=== PATIENT | female | born 1985 | race Caucasian/White ===

== ENCOUNTER 2017-02-18 23:01 | Observation (INO) | payer OTHER ==
[~2017-02-18] VITALS: Ht 170.2 cm; Wt 63.1 kg
[~2017-02-18 23:01] MED LIST: ALBU8I INH; ASPI81TA82 PO; FLON0.053; RANI150 PO; SUCR1S PO; SYNT75TA PO
[2017-02-18 23:04] VITALS: BP 133/74; PULSE 96; RESP 16; TEMP 98.4; O2SAT 96
[2017-02-18] MEDS ORDERED: ZITHTAB PO (23:16)
[2017-02-18] MEDS ORDERED: ALBU.5I NEB (23:16)
[2017-02-18] MEDS ORDERED: PRED20 PO (23:16)
[2017-02-18] MEDS ORDERED: ASPI81CH37 CHEW (23:16)
[2017-02-18] MEDS ORDERED: VENTAER INH (23:16)
[2017-02-19] VITALS (8 sets, daily range): BP systolic 103–119; BP diastolic 55–72; PULSE 83–92; RESP 17–18; TEMP 96.2–96.9; O2SAT 95–98
[2017-02-19] LABS: AUTOMATED NEUTROPHIL # 20.1 TH/MM3 (1.8-7.7); BASOPHIL # 0.2 TH/MM3 (0-0.2); BASOPHIL % 0.8 % (0.0-2.0); EOSINOPHIL % 0.1 % (0.0-4.0); HEMATOCRIT 40.7 % (35.0-46.0); LYMPH % 4.1 % (9.0-44.0); LYMPHOCYTE # 0.9 TH/MM3 (1.0-4.8); MEAN CELL VOLUME 89.5 FL (80.0-100.0); MEAN CORPUSCULAR HEMOGLOBIN 30.4 PG (27.0-34.0); MONO % 1.6 % (0.0-8.0); NEUT % 93.4 % (16.0-70.0); PLATELET COUNT 804 TH/MM3 (150-450); RED BLOOD COUNT 4.54 MIL/MM3 (4.00-5.30); RED CELL DISTRIBUTION WIDTH 13.9 % (11.6-17.2); WHITE BLOOD COUNT 21.5 TH/MM3 (4.0-11.0)
[2017-02-19 00:03] LABS: HEMO FLAGS AUTO DIFF
--- NOTE | 2017-02-19 00:16 | PD ---
HPI Chief Complaint: Respiratory Symptoms Time Seen by Provider: 23:16 Travel History International Travel<30 days: No Contact w/Intl Traveler<30days: No Traveled to known affect area: No History of Present Illness HPI The patient is a 31 year old female who presents to the [facility] emergency department with a history of cough, congestion that began 2 weeks ago. She reports that initially she also had nausea associated with this. She reports that the symptoms seemed to improve and then began to worsen again. She reports that she saw her primary care physician regarding the symptoms and was treated with a seven-day course of amoxicillin and oral steroids. The patient reports that approximately a year ago she was diagnosed with asthma. She reports that she has been using her nebulizer machine and rescue inhaler. She reports that over the last 2 days the cough seems to be worsening. She reports that the cough is productive of yellow sputum. She reports that on Friday to Friday she had a fever with a MAXIMUM TEMPERATURE of 100-101. She went again to see her primary care physician and was given a prescription for Zithromax, an injection of a steroid and another prescription for prednisone. The patient reports that she started the Zithromax yesterday. She reports that over the last 2 days she's had increased pain in the left side of her chest. She reports that it is worse with coughing. She reports a past medical history of essential thrombocythemia and is concerned about the possibility of a blood clot in her lung. She denies ever having a DVT or PE previously. On review systems otherwise, the patient denies having any neck pain, abdominal pain, recent vomiting or diarrhea, or urinary symptoms. LMP: Currently on her menstrual cycle [facility] Past Medical History Narrative Medical The patient's past medical history is significant for essential thrombocythemia , history of tobacco use, history of asthma, history of hypothyroid disorder. Asthma: Yes Blood Disorders: Yes (essentail thrombocythemia) Anxiety: Yes Diminished Hearing: No Endocrine: Yes (hypoglycemia) Immunizations Current: Yes Thyroid Disease: Yes (Hypo) ?: Not : 2 Para: 1 : 1 Past Surgical History Narrative Surgical The patient's past surgical history is significant for a tonsillectomy. Tonsillectomy: Yes Social History Alcohol Use: Yes (SOCIAL) Tobacco Use: No Substance Use: No Allergies-Medications (Allergen,Severity, Reaction): Coded Allergies: No Known Allergies (Unverified , 02/18/17) Reported Meds & Prescriptions Reported Meds & Active Scripts Active Reported Prednisone 20 Mg Tab 20 Mg PO BID Zithromax Z-Josh (Azithromycin) 250 Mg Dspk 250 Mg PO DIRECTED 500 MG (2 tabs) day 1, then 1 tab days 2-5. Albuterol Neb (Albuterol Sulfate) 2.5 Mg/0.5 Ml Neb 2.5 Mg NEB Q4HR NEB PRN Note: The Albuterol Sulfate Inhalation Solution is concentrated and must be diluted. Read complete instructions carefully before using. Ventolin Hfa 18 GM Inh (Albuterol Sulfate) 90 Mcg/Act Aer 2 Puff INH Q4-6H PRN Aspirin Low Dose (Aspirin) 81 Mg Chew 81 Mg CHEW DAILY Review of Systems Except as stated in HPI: all other systems reviewed are Neg General / Constitutional: No: Fever Eyes: No: Visual changes HENT: Positive: Rhinorrhea, Congestion, No: Headaches Cardiovascular: Positive: Chest Pain or Discomfort, Dyspnea on exertion Respiratory: Positive: Cough, Shortness of Breath, Wheezing, Sneezing Gastrointestinal: Positive: Nausea, No: Diarrhea, Abdominal Pain Genitourinary: No: Urgency, Frequency, Dysuria Musculoskeletal: No: Pain Skin: No Rash Neurologic: No: Weakness Psychiatric: No: Depression Endocrine: No: Polydipsia Hematologic/Lymphatic: No: Easy Bruising Physical Exam Narrative General: The patient is a well-developed well-nourished female in no acute distress. Head and Neck exam: Head is normocephalic atraumatic. Eyes: EOMI, pupils are equal round and reactive to light. Nose: Nose is midline septum with erythematous edematous nasal mucosa and a clear nasal discharge. Mouth: Dentition unremarkable. Moist mucus membranes. Posterior oropharynx is mildly erythematous. No tonsillar hypertrophy. Uvula midline. Airway patent. Neck: No palpable lymphadenopathy. No nuchal rigidity. No thyromegaly. Cardiovascular: Regular rate and rhythm without murmurs, gallops, or rubs. Lungs: The patient has coarse airway breath sounds in the lung bases, no wheezes, or rhonchi. The patient has a frequent dry sounding cough on examination. Abdomen: Soft, without tenderness to palpation in all 4 quadrants of the abdomen. No guarding, rebound, or rigidity. Normal bowel sounds are audible. No tenderness on palpation of McBurney's point. Extremities: No clubbing, cyanosis, or edema. 2+ pulses in all 4 extremities. No calf tenderness on palpation. Negative Homans sign. Back: No spinous process tenderness to palpation. No costovertebral angle tenderness to palpation. Above the CVA area on the left side laterally posterior axillary line the patient reports tenderness on palpation. There is no erythema or ecchymosis. No crepitus or step-off. No flail segment. Neurologic Exam: Grossly nonfocal. Skin Exam: No rash noted. Intact skin that is warm and dry. Data Data Last Documented VS Vital Signs Date Time Temp Pulse Resp B/P (MAP) Pulse Ox O2 Delivery O2 Flow Rate FiO2 02/18/17 23:07 18 96 Room Air 02/18/17 23:04 98.4 96 133/74 (93) Orders Orders Electrocardiogram (02/18/17 23:33) Complete Blood Count With Diff (02/18/17 23:33) Urinalysis - C+S If Indicated (02/18/17 23:33) Iv Access Insert/Monitor (02/18/17 23:33) Ecg Monitoring (02/18/17:33) Oximetry (02/18/17 23:33) Basic Metabolic Panel (Bmp) (02/18/17 23:33) Creatine Kinase (Cpk) (02/18/17 23:33) Ckmb (Isoenzyme) Profile (02/18/17 23:33) Troponin I (02/18/17:33) B-Type Natriuretic Peptide (02/18/17 23:33) Ct Pulmonary Angiogram (02/18/17 23:33) Iohexol 350 Inj (Omnipaque 350 Inj) (02/19/17 00:40) Ceftriaxone Inj (Rocephin Inj) (02/19/17 01:30) Lactic Acid Sepsis Protocol (02/19/17 02:26) Blood Culture (02/19/17 02:26) Sodium Chlor 0.9% 1000 Ml Inj (Ns 1000 M (02/19/17 02:45) Admit Order (Ed Use Only) (02/19/17 02:39) Albuterol-Ipratropium Neb (Duoneb Neb) (02/19/17 02:45) Methylprednisolone So Succ Inj (Solumedr (02/19/17 02:45) Site Acquisition Manager / Telemetry CHRIS.Q8H (02/19/17 02:39) Vital Signs (Adult) Q4H (02/19/17 02:39) Diet Heart Healthy (02/19/17 Breakfast) Activity Bed Rest (02/19/17 02:39) Labs Laboratory Tests Test 02/18/17 23:51 02/19/17 01:40 White Blood Count 21.5 TH/MM3 Red Blood Count 4.54 MIL/MM3 Hemoglobin 13.8 GM/DL Hematocrit 40.7 % Mean Corpuscular Volume 89.5 FL Mean Corpuscular Hemoglobin 30.4 PG Mean Corpuscular Hemoglobin Concent 34.0 % Red Cell Distribution Width 13.9 % Platelet Count 804 TH/MM3 Mean Platelet Volume 6.7 FL Neutrophils (%) (Auto) 93.4 % Lymphocytes (%) (Auto) 4.1 % Monocytes (%) (Auto) 1.6 % Eosinophils (%) (Auto) 0.1 % Basophils (%) (Auto) 0.8 % Neutrophils # (Auto) 20.1 TH/MM3 Lymphocytes # (Auto) 0.9 TH/MM3 Monocytes # (Auto) 0.3 TH/MM3 Eosinophils # (Auto) 0.0 TH/MM3 Basophils # (Auto) 0.2 TH/MM3 CBC Comment AUTO DIFF Differential Total Cells Counted 100 Neutrophils % (Manual) 83 % Band Neutrophils % 2 % Lymphocytes % 10 % Monocytes % 3 % Neutrophils # (Manual) 18.7 TH/MM3 Myelocytes 2 % Differential Comment FINAL DIFF MANUAL Atypical Lymphocytes % Platelet Estimate HIGH Platelet Morphology Comment NORMAL Red Cell Morphology Comment NORMAL Blood Urea Nitrogen 9 MG/DL Creatinine 0.57 MG/DL Random Glucose 116 MG/DL Calcium Level 9.0 MG/DL Sodium Level 139 MEQ/L Potassium Level 4.0 MEQ/L Chloride Level 106 MEQ/L Carbon Dioxide Level 25.0 MEQ/L Anion Gap 8 MEQ/L Estimat Glomerular Filtration Rate 124 ML/MIN Total Creatine Kinase 41 U/L Troponin I LESS THAN 0.02 NG/ML B-Type Natriuretic Peptide 26 PG/ML Urine Color LIGHT-YELLOW Urine Turbidity CLEAR Urine pH 6.0 Urine Specific [place] GREATER THAN 1.050 Urine Protein TRACE mg/dL Urine Glucose (UA) NEG mg/dL Urine Ketones NEG mg/dL Urine Occult Blood LARGE Urine Nitrite NEG Urine Bilirubin NEG Urine Urobilinogen LESS THAN 2.0 MG/DL Urine Leukocyte Esterase NEG Urine RBC 1 /hpf Urine WBC 2 /hpf Urine Squamous Epithelial Cells 12 /hpf Microscopic Urinalysis Comment CULT NOT INDICATED MDM Medical Decision Making Medical Screen Exam Complete: Yes Emergency Medical Condition: Yes Medical Record Reviewed: Yes Interpretation(s) Last Impressions CT Angiography 02/18/17 2333 Signed Impressions: Service Date/Time: Sunday, February 19, 2017 00:38 - CONCLUSION: No evidence of pulmonary embolism. Right lower lobe infiltrate. Chase Barnard MD Differential Diagnosis Pneumonia, versus pulmonary embolism, versus pleurisy, versus costochondritis, versus musculoskeletal strain Narrative Course During the course of the patients emergency department visit, the patients history, examination, and differential diagnosis were reviewed with the patient. The patient had IV access obtained and blood work sent for analysis. The patient was placed on a grease renderer with oximetry and blood pressure monitoring. An ECG was done on arrival. The patient's ECG reveals a sinus rhythm heart rate of 70, no acute ST segment elevation or depression, T waves are inverted in V1. QRS duration is 70 ms, QTC 375 ms. The patients laboratory studies were reviewed and remarkable for a white count of 21.5, hemoglobin 13.8, platelets 804 with 83 neutrophils, bands 2. Basic metabolic profile is remarkable for glucose of 116, CPK 41, troponin I less than 0.02, BNP 26, lactic acid 0.9, urinalysis shows large occult blood, 1 rbc, concentrated urine. The patient was started on normal saline 1 L IV fluid bolus. The patient was given 60 mg of Solu-Medrol IV and she reports being on steroids and received an injection of steroids yesterday intramuscularly. The patient was given Rocephin 1 g IV as she has recently been started on Zithromax by mouth yesterday. Radiology studies were reviewed and remarkable for a CTA reveals no evidence of pulmonary embolism, however the patient is noted to have a right lower lobe infiltrate consistent with pneumonia. The patients results were discussed with the patient, including the plan of care. I explained that further testing and/ or monitoring is indicated based on the patients history, examination, and/ or laboratory findings. Therefore, I recommended admission for additional evaluation. The patient expressed understanding and was agreeable with this plan. The patient was admitted to the hospital in stable condition and [facility] Sepsis Criteria SIRS Criteria (2 or more): Heart rate over 90, WBC > 32836, < 4000 or > 10% bands Sepsis Criteria (SIRS+source): Infect source susp/known Criteria Outcome: Meets SIRS criteria, Meets sepsis criteria Physician Communication Physician Communication The patient's case was discussed with Dr. Espinoza who did agree to admit the patient for further evaluation and treatment at this time. Diagnosis Primary Impression: Pneumonia Qualified Codes: J18.1 - Lobar pneumonia, unspecified organism Additional Impression: Asthma exacerbation Qualified Codes: J45.41 - Moderate persistent asthma with (acute) exacerbation Admitting Information Admitting Physician Requests: it Celestina Stewart MD Feb 19, 2017 00:16
[2017-02-19 00:26] LABS: ANION GAP 8 MEQ/L (5-15); BLOOD UREA NITROGEN 9 MG/DL (7-18); CHLORIDE 106 MEQ/L (98-107); GLOMERULAR FILTRATION RATE 124 ML/MIN (>89); SODIUM (NA) 139 MEQ/L (136-145)
[2017-02-19 00:30] LABS: CREATINE KINASE 41 U/L (26-192)
[2017-02-19] MEDS ORDERED: IOHEXOL 350 MG/ML 10 ML VIAL (for RAD DIAG) IVCONTRAST ONE (00:40)
[2017-02-19 00:49] LABS: BANDS 2 % (0-6); MYELOCYTES 2 % (0-0); NEUTROPHIL # MANUAL DIFF 18.7 TH/MM3 (1.8-7.7); POLYS (SEG NEUTROPHILS) 83 % (16-70); WBC DIFF SAMPLE 100
[2017-02-19 00:50] LABS: PLATELET ESTIMATE SMEAR HIGH (NORMAL); PLATELET MORPHOLOGY NORMAL (NORMAL); SCAN/DIFF FINAL DIFF MANUAL
--- NOTE | 2017-02-19 00:57 | RADRPT ---
EXAM DATE/TIME: 02/19/2017 00:38 [place] COMPARISON: No previous studies available for comparison. INDICATIONS : Shortness of breath with cough x2 weeks. IV CONTRAST: 69 cc Omnipaque 350 (iohexol) IV RADIATION DOSE: 22.93 CTDIvol (mGy) MEDICAL HISTORY : None SURGICAL HISTORY : Tonsillectomy. ENCOUNTER: Initial ACUITY: 2 weeks PAIN SCALE: 0/10 LOCATION: Bilateral chest TECHNIQUE: Volumetric scanning of the chest was performed using a pulmonary embolism protocol MIP images were re constructed. Using automated exposure control and adjustment of the mA and/or kV according to patien t size, radiation dose was kept as low as reasonably achievable to obtain optimal diagnostic quality images. DICOM format image data is available electronically for review and comparison. Follow-up recommendations for detected pulmonary nodules are based at a minimum on nodule size and pa tient risk factors according to Fleischner Society Guidelines. FINDINGS: PULMONARY ARTERIES: No filling defects are seen in the pulmonary arteries through the segmental level. LUNGS: A there is interstitial and alveolar infiltrate in the right lower lobe posteriorly. PLEURAE: There is no pleural thickening or pleural effusion. MEDIASTINUM: Minimal prominence of right hilar vanna tissue, presumably reactive. MUSCULOSKELETAL: Within normal limits for patient age. MISCELLANEOUS: The visualized upper abdominal organs demonstrate no acute abnormality. CONCLUSION: No evidence of pulmonary embolism. Right lower lobe infiltrate. Chase Barnard MD on February 19, 2017 at 0:53 Board Certified Radiologist. This report was verified electronically.
[2017-02-19] MEDS ORDERED: cefTRIAXone INJ 1,000 MG in SODIUM CHLORIDE 0.9% INJ 100 ML IV ONE (01:30)
[2017-02-19 01:51] LABS: BLOOD, URINE LARGE (NEG); COMMENT (UR) CULT NOT INDICATED; CULTURE IF INDICATED CULT NOT INDICATED; GLUCOSE,URINE NEG (NEG); KETONE, URINE NEG (NEG); NITRITE,URINE NEG (NEG); SQUAMOUS EPITHELIAL CELL URINE 12 /hpf (0-5); URINE COLOR LIGHT-YELLOW (YELLW/STRAW)
[2017-02-19] MEDS ORDERED: SODIUM CHLOR 0.9% 1000 ML INJ 1,000 ML IV ONE (02:45)
[2017-02-19] MEDS ORDERED: methylPREDNISolone SOD SUCC 125 MG/2 ML VIAL IV PUSH ONE (02:45)
[2017-02-19] MEDS ORDERED: RESP: ALBUTEROL 2.5 MG/IPRATROPIUM 0.5 MG NEB (SCH) NEB ONE (02:45)
[2017-02-19] MEDS ORDERED: ACETAMINOPHEN 325 MG TAB PO PRN (09:45)
[2017-02-19] MEDS ORDERED: RESP: ALBUTEROL 2.5 MG/IPRATROPIUM 0.5 MG NEB (PRN) NEB (09:45)
[2017-02-19] MEDS ORDERED: MAGNESIUM HYDROXIDE SUSP 30 ML CUP PO PRN (09:45)
[2017-02-19] MEDS ORDERED: ONDANSETRON HCL 4 MG/2 ML VIAL IVP PRN (09:45)
[2017-02-19] MEDS ORDERED: NALOXONE HCL 0.4 MG/ML AMP IV PUSH PRN (09:45)
[2017-02-19] MEDS ORDERED: SODIUM CHLORIDE 0.9% FLUSH 10 ML FLUSH IV FLUSH PRN (09:45)
--- NOTE | 2017-02-19 09:56 | HHI.HP ---
HPI Service [facility] Hospitalists Primary Care Physician Cecy Mckeon M.D. Admission Diagnosis Right lower lobe pneumonia, asthma exacerbation Chief Complaint: persistent congestion and cough x 2 weeks. Travel History International Travel<30 Days: No Contact w/Intl Traveler <30 Da: No Traveled to Known Affected Are: No History of Present Illness The patient is a 31 year old female who presents to the [facility] emergency department with a history of cough, congestion that began 2 weeks ago. She reports that initially she initially thought she had the flu and the the nasal congestion and cough was associated with nausea, vomiting and diarrhea. She reports that she saw her primary care physician regarding the symptoms and was treated with a seven-day course of amoxicillin and oral steroids. The patient reports that approximately a year ago she was diagnosed with asthma. She reports that she has been using her nebulizer machine and rescue inhaler. She reports that over the last 2 days the cough seems to be worsening. Patient has productive cough of yellow sputum. She reports that on Friday to Friday she had a fever with a MAXIMUM TEMPERATURE of 100-101. She went again to see her primary care physician and was given a prescription for Zithromax, an injection of a steroid and another prescription for prednisone. The patient reports that she has taken 3 days of Zithromax at home. She reports that over the last 2 days she's had increased pain in the left side of her chest. She reports that it is worse with coughing. She reports a past medical history of essential thrombocythemia and is concerned about the possibility of a blood clot in her lung. She denies ever having a DVT or PE previously. Review of Systems Constitutional: COMPLAINS OF: Fatigue, Fever, DENIES: Chills Respiratory: COMPLAINS OF: Cough, Sputum production, Shortness of breath Cardiovascular: COMPLAINS OF: Dyspnea on Exertion, DENIES: Chest pain, Palpitations, Lower Extremity Edema Gastrointestinal: DENIES: Abdominal pain, Constipation, Diarrhea Neurologic: DENIES: Abnormal gait, Headache, Localized weakness Psychiatric: DENIES: Anxiety, Confusion, Depression Past Family Social History Past Medical History essential thrombocythemia, history of tobacco use, history of asthma, history of hypothyroid disorder. Past Surgical History tonsillectomy and adenoidectomy Reported Medications Prednisone 20 Mg Tab 20 Mg PO BID Zithromax Z-Josh (Azithromycin) 250 Mg Dspk 250 Mg PO DIRECTED 500 MG (2 tabs) day 1, then 1 tab days 2-5. Albuterol Neb (Albuterol Sulfate) 2.5 Mg/0.5 Ml Neb 2.5 Mg NEB Q4HR NEB PRN Note: The Albuterol Sulfate Inhalation Solution is concentrated and must be diluted. Read complete instructions carefully before using. Ventolin Hfa 18 GM Inh (Albuterol Sulfate) 90 Mcg/Act Aer 2 Puff INH Q4-6H PRN Aspirin Low Dose (Aspirin) 81 Mg Chew 81 Mg CHEW DAILY Allergies: Coded Allergies: No Known Allergies (Unverified , 02/18/17) Active Ordered Medications Current Medications Medications (Trade) Dose Ordered Sig/Walter Route Start Time Stop Time Status Last Admin (NS Flush) 2 ml UNSCH PRN IV FLUSH 02/19/17 09:45 UNV (NS Flush) 2 ml BID IV FLUSH 02/19/17 21:00 UNV (Tylenol) 650 mg Q4H PRN PO 02/19/17 09:45 UNV (Zofran Inj) 4 mg Q6H PRN IVP 02/19/17 09:45 UNV (Narcan Inj) 0.4 mg UNSCH PRN IV PUSH 02/19/17 09:45 UNV (Chrissy-Colace) 1 tab BID PO 02/19/17 21:00 UNV (Milk Of Magnesia Liq) 30 ml Q12H PRN PO 02/19/17 09:45 UNV (Duoneb Neb) 1 ampule Q6HR WHILE AWAKE NEB NEB 02/19/17 14:00 UNV (Duoneb Neb) 1 ampule Q4HR NEB PRN NEB 02/19/17 09:45 UNV Social History Social ETOH use Current tobacco use denies illicit drug use Physical Exam Vital Signs Vital Signs Date Time Temp Pulse Resp B/P (MAP) Pulse Ox O2 Delivery O2 Flow Rate FiO2 02/19/17 04:00 96.9 89 17 119/72 (88) 96 02/19/17 02:55 97 02/18/17 23:07 18 96 Room Air 02/18/17 23:04 98.4 96 16 133/74 (93) 96 Physical Exam GENERAL: This is a well-nourished, well-developed patient EYES: Extraocular motions intact. No scleral icterus. No injection or drainage. ENT: Nose without bleeding, purulent drainage or septal hematoma. Throat without erythema, tonsillar hypertrophy or exudate. Uvula midline. Airway patent. NECK: Trachea midline. No JVD or lymphadenopathy. Supple, nontender, no meningeal signs. CARDIOVASCULAR: Regular rate and rhythm without murmurs, gallops, or rubs. RESPIRATORY: bilateral coarse rhonchi through out. GASTROINTESTINAL: Abdomen soft, non-tender, nondistended. No hepato-splenomegaly , or palpable masses. No guarding. MUSCULOSKELETAL: Extremities without clubbing, cyanosis, or edema. No joint tenderness, effusion, or edema noted. No calf tenderness. Negative Homans sign bilaterally. NEUROLOGICAL: Awake and alert. No focal deficits appreciated. Motor and sensory grossly within normal limits. Five out of 5 muscle strength in all muscle groups. Normal speech. Laboratory Laboratory Tests Test 02/18/17 23:51 02/19/17 01:40 02/19/17 03:00 White Blood Count 21.5 Red Blood Count 4.54 Hemoglobin 13.8 Hematocrit 40.7 Mean Corpuscular Volume 89.5 Mean Corpuscular Hemoglobin 30.4 Mean Corpuscular Hemoglobin Concent 34.0 Red Cell Distribution Width 13.9 Platelet Count 804 Mean Platelet Volume 6.7 Neutrophils (%) (Auto) 93.4 Lymphocytes (%) (Auto) 4.1 Monocytes (%) (Auto) 1.6 Eosinophils (%) (Auto) 0.1 Basophils (%) (Auto) 0.8 Neutrophils # (Auto) 20.1 Lymphocytes # (Auto) 0.9 Monocytes # (Auto) 0.3 Eosinophils # (Auto) 0.0 Basophils # (Auto) 0.2 CBC Comment AUTO DIFF Differential Total Cells Counted 100 Neutrophils % (Manual) 83 Band Neutrophils % 2 Lymphocytes % 10 Monocytes % 3 Neutrophils # (Manual) 18.7 Myelocytes 2 Differential Comment FINAL DIFF MANUAL Atypical Lymphocytes Platelet Estimate HIGH Platelet Morphology Comment NORMAL Red Cell Morphology Comment NORMAL Blood Urea Nitrogen 9 Creatinine 0.57 Random Glucose 116 Calcium Level 9.0 Sodium Level 139 Potassium Level 4.0 Chloride Level 106 Carbon Dioxide Level 25.0 Anion Gap 8 Estimat Glomerular Filtration Rate 124 Total Creatine Kinase 41 Troponin I LESS THAN 0.02 B-Type Natriuretic Peptide 26 Urine Color LIGHT-YELLOW Urine Turbidity CLEAR Urine pH 6.0 Urine Specific [place] GREATER THAN 1.050 Urine Protein TRACE Urine Glucose (UA) NEG Urine Ketones NEG Urine Occult Blood LARGE Urine Nitrite NEG Urine Bilirubin NEG Urine Urobilinogen LESS THAN 2.0 Urine Leukocyte Esterase NEG Urine RBC 1 Urine WBC 2 Urine Squamous Epithelial Cells 12 Microscopic Urinalysis Comment CULT NOT INDICATED Lactic Acid Level 0.9 Date/Time Source Procedure Growth Status 02/19/17 03:00 Blood Peripheral Aerobic Blood Culture Pending Received 02/19/17 03:00 Blood Peripheral Anaerobic Blood Culture Pending Received Result Diagram: 02/18/17 2351 02/18/[address] Angiography 02/18/173 Signed Impressions: Service Date/Time: Sunday, February 19, 2017 00:38 - CONCLUSION: No evidence of pulmonary embolism. Right lower lobe infiltrate. MD Vanessa Mcneil VTE Risk Assessment Vanessa VTE Risk Assessment: No/Low Risk (score <= 1) Davidrini Risk Assessment Model Point Value = 1 Point Value = 2 Point Value = 3 Point Value = 5 Age 41-60 Minor surgery BMI > 25 kg/m2 Swollen legs Varicose veins or History of unexplained or recurrent spontaneous Oral contraceptives or hormone replacement Sepsis (< 1 month) Serious lung disease, including pneumonia (< 1 month) Abnormal pulmonary function Acute myocardial infarction Congestive heart failure (< 1 month) History of inflammatory bowel disease Medical patient at bed rest Age 61-74 Arthroscopic surgery Major open surgery (> 45 min) Laparoscopic surgery (> 45 min) Malignancy Confined to bed (> 72 hours) Immobilizing plaster cast Central venous access Age >= 75 History of VTE Family history of VTE Factor V Leiden Prothrombin [id number] Lupus anticoagulant Anticardiolipin antibodies Elevated serum homocysteine Heparin-induced thrombocytopenia Other congenital or acquired thrombophilia Stroke (< 1 month) Elective arthroplasty Hip, pelvis, or leg fracture Acute spinal cord injury (< 1 month) Prophylaxis Regimen Total Risk Factor Score Risk Level Prophylaxis Regimen 0-1 Low Early ambulation 2 Moderate Order ONE of the following: *Sequential Compression Device (SCD) *Heparin 5000 units SQ BID 3-4 Higher Order ONE of the following medications: *Heparin 5000 units SQ TID *Enoxaparin/Lovenox 40 mg SQ daily (WT < 150 kg, CrCl > 30 mL/min) *Enoxaparin/Lovenox 30 mg SQ daily (WT < 150 kg, CrCl > 10-29 mL/min) *Enoxaparin/Lovenox 30 mg SQ BID (WT < 150 kg, CrCl > 30 mL/min) AND/OR *Sequential Compression Device (SCD) 5 or more Highest Order ONE of the following medications: *Heparin 5000 units SQ TID (Preferred with Epidurals) *Enoxaparin/Lovenox 40 mg SQ daily (WT < 150 kg, CrCl > 30 mL/min) *Enoxaparin/Lovenox 30 mg SQ daily (WT < 150 kg, CrCl > 10-29 mL/min) *Enoxaparin/Lovenox 30 mg SQ BID (WT < 150 kg, CrCl > 30 mL/min) AND *Sequential Compression Device (SCD) Assessment and Plan Problem List: (1) Pneumonia ICD Codes: J18.9 - Pneumonia, unspecified organism Status: Acute Plan: Patient with 2 weeks of nasal congestion and productive cough. Patient has failed outpatient therapy including amoxicillin, azithromycin and by mouth steroids. Patient's lungs have bilateral coarse rhonchi through out. There lung sounds are concerning, patient at risks for decompensation and readmission if discharged today. CT angiogram reviewed no evidence of pulmonary embolism. Right lower lobe infiltrate IV Rocephin Q24 hours Duonebs Q6H while awake and as needed Solu Medrol 60 mg IV Q12H supplemental oxygen to maintain saturation >92% continue to monitor for improvement Recheck Labs and CXR in AM plan to DC in 2-3days once patient's status improves DVT prophylaxis with SCDs (2) Asthma exacerbation ICD Codes: J45.901 - Unspecified asthma with (acute) exacerbation Status: Acute Plan: see above Assessment and Plan Patient examined. Assessment and plan formulated with Jenna Rogers PA-C. I agree with the above. Problem Qualifiers (1) Asthma exacerbation: Qualified Codes: J45.901 - Unspecified asthma with (acute) exacerbation Jenna Rogers Feb 19, 2017 09:56 Leoncio Morris DO Feb 23, 2017 00:20
--- NOTE | 2017-02-19 15:06 | EKG ---
Date Performed: 02/19/2017 Time Performed: 00:04:06 PTAGE: 31 years EKG: Sinus rhythm NORMAL ECG NO PREVIOUS TRACING DOCTOR: Bryon Olmedo Interpretating Date/Time 02/19/2017 15:05:12
[2017-02-19] MEDS: RESP: ALBUTEROL 2.5 MG/IPRATROPIUM 0.5 MG NEB (SCH) NEB ×2 (15:36→20:45)
[2017-02-19] MEDS: methylPREDNISolone SOD SUCC 125 MG/2 ML VIAL IV PUSH SCH (20:06)
[2017-02-19] MEDS: SODIUM CHLORIDE 0.9% FLUSH 10 ML FLUSH IV FLUSH SCH (20:06)
[2017-02-19] MEDS: DOCUSATE SODIUM 50 MG/SENNA 8.6 MG TAB PO SCH (20:06)
[2017-02-19] MEDS: cefTRIAXone INJ 1,000 MG in SODIUM CHLORIDE 0.9% INJ 100 ML IV SCH (22:38)
[2017-02-20] VITALS (8 sets, daily range): BP systolic 95–119; BP diastolic 51–72; PULSE 62–96; RESP 17–20; TEMP 95.9–97.1; O2SAT 94–98
[2017-02-20] MEDS: RESP: ALBUTEROL 2.5 MG/IPRATROPIUM 0.5 MG NEB (SCH) NEB ×3 (07:39→19:18)
[2017-02-20 08:17] LABS: AUTOMATED NEUTROPHIL # 21.7 TH/MM3 (1.8-7.7); BASOPHIL # 0.1 TH/MM3 (0-0.2); BASOPHIL % 0.3 % (0.0-2.0); HEMATOCRIT 38.8 % (35.0-46.0); HEMO FLAGS DIFF FINAL; LYMPH % 8.2 % (9.0-44.0); MEAN CELL VOLUME 90.2 FL (80.0-100.0); MEAN CORPUSCULAR HEMOGLOBIN 29.9 PG (27.0-34.0); MEAN CORPUSCULAR HGB CONC 33.2 % (32.0-36.0); MONO % 4.7 % (0.0-8.0); NEUT % 86.8 % (16.0-70.0); PLATELET COUNT 784 TH/MM3 (150-450); RED CELL DISTRIBUTION WIDTH 14.3 % (11.6-17.2); WHITE BLOOD COUNT 25.1 TH/MM3 (4.0-11.0)
[2017-02-20] MEDS ORDERED: ASPIRIN 325 MG TAB PO SCH (09:00)
[2017-02-20 09:15] LABS: POTASSIUM 3.9 MEQ/L (3.5-5.1)
[2017-02-20] MEDS: SODIUM CHLORIDE 0.9% FLUSH 10 ML FLUSH IV FLUSH SCH ×2 (09:20→22:30)
[2017-02-20] MEDS: methylPREDNISolone SOD SUCC 125 MG/2 ML VIAL IV PUSH SCH ×2 (09:21→22:27)
[2017-02-20] MEDS: DOCUSATE SODIUM 50 MG/SENNA 8.6 MG TAB PO SCH ×2 (09:21→22:27)
--- NOTE | 2017-02-20 10:35 | RADRPT ---
EXAM DATE/TIME: 02/20/2017 10:03 [place] COMPARISON: CHEST PA & LAT, October 05, 2015, 19:38. INDICATIONS : Cough; pneumonia. MEDICAL HISTORY : None. SURGICAL HISTORY : None. ENCOUNTER: Subsequent ACUITY: 2 weeks PAIN SCORE: 4/10 LOCATION: Bilateral chest FINDINGS: PA and lateral views of the chest demonstrate the lungs to be symmetrically aerated without evidence of mass, infiltrate or effusion. The cardiomediastinal contours are unremarkable. Osseous structure s are intact. There is subsegmental atelectasis in the right base. CONCLUSION: 1. Subsegmental atelectasis right base. Michi Erazo MD on February 20, 2017 at 10:34 Board Certified Radiologist. This report was verified electronically.
--- NOTE | 2017-02-20 15:52 | HHI.PR ---
Subjective Remarks Less SOB today. Less wheezing today. No fever. Less coughing. Some pleuritic chest pain with coughing. Objective Vitals Vital Signs Date Time Temp Pulse Resp B/P (MAP) Pulse Ox O2 Delivery O2 Flow Rate FiO2 02/20/17 12:00 95.9 74 18 119/68 (85) 94 02/20/17 08:00 82 02/20/17 07:45 96.1 62 18 95/51 (66) 95 02/20/17 04:37 96.7 69 17 104/59 (74) 94 02/20/17 00:10 96.3 78 17 99/63 (75) 94 02/19/17 20:47 98 02/19/17 20:10 96.8 92 17 104/62 (76) 97 02/19/17 16:00 96.3 88 18 111/67 (82) 96 02/20/17 02/20/17 02/21/17 15:00 23:00 07:00 Intake Total 600 ml Balance 600 ml Intake Oral 600 ml # Voids 3 # Bowel Movements 0 Result Diagram: 02/20/17 0655 02/20/17 [address] Angiography 02/18/17 4742 Signed Impressions: Service Date/Time: Sunday, February 19, 2017 00:38 - CONCLUSION: No evidence of pulmonary embolism. Right lower lobe infiltrate. Chase Barnard MD Objective Remarks GENERAL: This is a well-nourished, well-developed patient, in no apparent distress. CARDIOVASCULAR: Regular rate and rhythm without murmurs, gallops, or rubs. RESPIRATORY: airway movement much improved, still some b/l end expiratory wheezing GASTROINTESTINAL: Abdomen soft, non-tender, nondistended. Normal active bowel sounds MUSCULOSKELETAL: Extremities without clubbing, cyanosis, or edema. NEURO: Alert & Oriented x4 to person, place, time, situation. Moves all ext x4 A/P Problem List: (1) Pneumonia ICD Codes: J18.9 - Pneumonia, unspecified organism Status: Acute Plan: Patient with 2 weeks of nasal congestion and productive cough. Patient has failed outpatient therapy including amoxicillin, azithromycin and by mouth steroids. Patient's lungs have bilateral coarse rhonchi through out. There lung sounds are concerning, patient at risks for decompensation and readmission if discharged today. CT angiogram reviewed no evidence of pulmonary embolism. Right lower lobe infiltrate IV Rocephin Q24 hours Duonebs Q6H while awake and as needed - Solu Medrol 60 mg IV Q12H, will change to PO for 02/21 - supplemental O2 prn - anticipate d/c to home in AM - Case Mgmt to arrange for home nebulizer - DVT prophylaxis - supportive care (2) Asthma exacerbation ICD Codes: J45.901 - Unspecified asthma with (acute) exacerbation Status: Acute Plan: see above Problem Qualifiers (1) Asthma exacerbation: Qualified Codes: J45.901 - Unspecified asthma with (acute) exacerbation Leoncio Morris DO Feb 20, 2017 15:52
[2017-02-20] MEDS ORDERED: NEBULIZER1 MI1 (15:54)
[2017-02-20] MEDS: cefTRIAXone INJ 1,000 MG in SODIUM CHLORIDE 0.9% INJ 100 ML IV SCH (22:29)
[2017-02-20] MEDS ORDERED: KETOROLAC TROMETHAMINE 60 MG/2 ML (IM) VIAL IM ONE (23:30)
[2017-02-21 00:40] VITALS: BP 114/65; PULSE 86; RESP 16; TEMP 97.1; O2SAT 96
[2017-02-21 04:40] VITALS: BP 112/72; PULSE 72; RESP 16; TEMP 96.8; O2SAT 95
[2017-02-21 07:39] VITALS: BP 96/53; PULSE 61; RESP 18; TEMP 96.5; O2SAT 95
[2017-02-21] MEDS: predniSONE 10 MG TAB PO SCH ×3 (08:00→09:00)
[2017-02-21 08:02] VITALS: O2SAT 98
[2017-02-21] MEDS: RESP: ALBUTEROL 2.5 MG/IPRATROPIUM 0.5 MG NEB (SCH) NEB ×2 (08:02→12:20)
[2017-02-21] MEDS: SODIUM CHLORIDE 0.9% FLUSH 10 ML FLUSH IV FLUSH SCH (08:39)
[2017-02-21] MEDS: DOCUSATE SODIUM 50 MG/SENNA 8.6 MG TAB PO SCH (08:39)
[2017-02-21] MEDS ORDERED: ASPIRIN 81 MG CHEW TAB PO SCH (09:00)
[2017-02-21 09:27] VITALS: PULSE 61
[2017-02-21 11:30] VITALS: BP 128/74; PULSE 93; RESP 18; TEMP 96.5; O2SAT 94
[2017-02-21] MEDS ORDERED: ALBU.5I NEB (13:49)
[2017-02-21] MEDS ORDERED: IPRA0.02 NEB (13:49)
[2017-02-21] MEDS ORDERED: LEVA500T20 PO (13:49)
[2017-02-21] MEDS ORDERED: KETO10 PO (13:49)
[2017-02-21] MEDS ORDERED: PRED10 PO (13:49)
--- NOTE | 2017-02-21 13:52 | HHI.DCPOC ---
Discharge Care Plan Diagnosis: (1) Pneumonia (2) Asthma exacerbation (3) Leukocytosis Goals to Promote Your Health * To prevent worsening of your condition and complications * To maintain your health at the optimal level Directions to Meet Your Goals Take your medications as prescribed Follow your dietary instruction Follow activity as directed Keep your appointments as scheduled Take your immunizations and boosters as scheduled If your symptoms worsen call your PCP, if no PCP go to Urgent Care Center or Emergency Room Smoking is Dangerous to Your Health. Avoid second hand smoke Call the 24-hour hour crisis hotline for domestic abuse at Jenna Rogers Feb 21, 2017 13:52 Leoncio Morris DO Feb 23, 2017 00:21
--- NOTE | 2017-02-21 13:55 | HHI.DS ---
Discharge Summary Admission Date Feb 19, 2017 at 02:43 Discharge Date: Feb 21, 2017 Admitting Diagnosis Right lower lobe pneumonia, asthma exacerbation (1) Pneumonia ICD Codes: J18.9 - Pneumonia, unspecified organism Status: Acute (2) Asthma exacerbation ICD Codes: J45.901 - Unspecified asthma with (acute) exacerbation Status: Acute Consultants none Procedures none Brief History The patient is a 31 year old female who presents to the [facility] emergency department with a history of cough, congestion that began 2 weeks ago. She reports that initially she initially thought she had the flu and the the nasal congestion and cough was associated with nausea, vomiting and diarrhea. She reports that she saw her primary care physician regarding the symptoms and was treated with a seven-day course of amoxicillin and oral steroids. The patient reports that approximately a year ago she was diagnosed with asthma. She reports that she has been using her nebulizer machine and rescue inhaler. She reports that over the last 2 days the cough seems to be worsening. Patient has productive cough of yellow sputum. She reports that on Friday to Friday she had a fever with a MAXIMUM TEMPERATURE of 100-101. She went again to see her primary care physician and was given a prescription for Zithromax, an injection of a steroid and another prescription for prednisone. The patient reports that she has taken 3 days of Zithromax at home. She reports that over the last 2 days she's had increased pain in the left side of her chest. She reports that it is worse with coughing. She reports a past medical history of essential thrombocythemia and is concerned about the possibility of a blood clot in her lung. She denies ever having a DVT or PE previously. CBC/BMP: 02/20/17 0655 02/20/17 0655 Significant Findings Laboratory Tests Test 02/18/17 23:51 02/19/17 01:40 02/19/17 03:00 02/20/17 06:55 White Blood Count 21.5 TH/MM3 (4.0-11.0) 25.1 TH/MM3 (4.0-11.0) Platelet Count 804 TH/MM3 (150-450) 784 TH/MM3 (150-450) Mean Platelet Volume 6.7 FL (7.0-11.0) 6.9 FL (7.0-11.0) Neutrophils (%) (Auto) 93.4 % (16.0-70.0) 86.8 % (16.0-70.0) Lymphocytes (%) (Auto) 4.1 % (9.0-44.0) 8.2 % (9.0-44.0) Neutrophils # (Auto) 20.1 TH/MM3 (1.8-7.7) 21.7 TH/MM3 (1.8-7.7) Lymphocytes # (Auto) 0.9 TH/MM3 (1.0-4.8) Neutrophils % (Manual) 83 % (16-70) Neutrophils # (Manual) 18.7 TH/MM3 (1.8-7.7) Myelocytes 2 % (0-0) Platelet Estimate HIGH (NORMAL) Random Glucose 116 MG/DL (74-106) 127 MG/DL (74-106) Troponin I LESS THAN 0.02 NG/ML Urine Specific [place] GREATER THAN 1.050 Urine Occult Blood LARGE (NEG) Monocytes # (Auto) 1.2 TH/MM3 (0-0.9) Imaging Last Impressions Chest X-Ray 02/20/17 0600 Signed Impressions: Service Date/Time: February 10:03 - CONCLUSION: 1. Subsegmental atelectasis right base. Michi Erazo MD CT Angiography 02/18/17 2333 Signed Impressions: Service Date/Time: Sunday, February 19, 2017 00:38 - CONCLUSION: No evidence of pulmonary embolism. Right lower lobe infiltrate. Chase Barnard MD PE at Discharge GENERAL: This is a well-nourished, well-developed patient, in no apparent distress. CARDIOVASCULAR: Regular rate and rhythm without murmurs, gallops, or rubs. RESPIRATORY: airway movement much improved, clear through out GASTROINTESTINAL: Abdomen soft, non-tender, nondistended. Normal active bowel sounds MUSCULOSKELETAL: Extremities without clubbing, cyanosis, or edema. NEURO: Alert & Oriented x4 to person, place, time, situation. Moves all ext x4 Hospital Course PNA Patient with 2 weeks of nasal congestion and productive cough. Patient has failed outpatient therapy including amoxicillin, azithromycin and by mouth steroids. Patient's lungs have bilateral coarse rhonchi through out. There lung sounds are concerning, patient at risks for decompensation and readmission if discharged today. CT angiogram reviewed no evidence of pulmonary embolism. Right lower lobe infiltrate IV Rocephin Q24 hours x 2 days, will dc home with Levaquin 500 mg PO daily to complete 10 days total coarse Duonebs Q6H while awake and as needed - Solu Medrol 60 mg IV Q12H, will change to PO for 02/21- DC with taper dose - supplemental O2 prn - DVT prophylaxis - supportive care Asthma exacerbation see above Pt Condition on Discharge: Stable Discharge Disposition: Discharge Home Discharge Instructions DIET: Follow Instructions for: As Tolerated, No Restrictions Activities you can perform: Regular-No Restrictions Follow up Referrals: PCP Follow-up - [address] Mckeon New Medications: Ipratropium Neb (Ipratropium Neb) 0.5 Mg/2.5 Ml Amp 0.5 MG NEB Q4HR NEB PRN for SHORTNESS OF BREATH, #60 NEBULE 0 Refills Ketorolac (Ketorolac) 10 Mg Tab 10 MG PO Q6HR PRN for PAIN, #10 TAB 0 Refills Levofloxacin (Levaquin) 500 Mg Tablet 500 MG PO DAILY for Infection, #8 TAB 0 Refills Nebulizer (Nebulizer) 1 Mis Mis EA .ROUTE DIRECTED for Breathing Treatment, #1 0 Refills Prednisone (Prednisone) 10 Mg Tab 10 MG PO DIRECTED for steroid taper, #33 TAB 0 Refills take 30 mg twice a day for 2 days then take 20 mg twice a day for 3 days then take 10 mg twice a day for 3 days then take 10 mg daily for 3 days then stop Continued Medications: Albuterol 18 GM Inh (Ventolin Hfa 18 GM Inh) 90 Mcg/Act Aer 2 PUFF INH Q4-6H PRN for SHORTNESS OF BREATH, #1 INHALER 0 Refills Albuterol Neb (Albuterol Neb) 2.5 Mg/0.5 Ml Neb 2.5 MG NEB Q4HR NEB PRN for SOB/WHEEZING, #60 EA 0 Refills (This prescription has been renewed) Note: The Albuterol Sulfate Inhalation Solution is concentrated and must be diluted. Read complete instructions carefully before using. Aspirin (Aspirin Low Dose) 81 Mg Chew 81 MG CHEW DAILY, TAB 0 Refills Discontinued Medications: Azithromycin (Zithromax Z-Josh) 250 Mg Dspk 250 MG PO DIRECTED for Infection, #1 DSPK 0 Refills 500 MG (2 tabs) day 1, then 1 tab days 2-5. Prednisone (Prednisone) 20 Mg Tab 20 MG PO BID, TAB 0 Refills Additional Information Patient examined. Assessment and plan formulated with Jenna Rogers PA-C. I agree with the above. Jenna Rogers Feb 21, 2017 13:55 Leoncio Morris DO Feb 23, 2017 00:20
== END 2017-02-21 17:14 | disposition home or self-care (01) ==
LOC: NEPE 23:01 → INTOOBSV 02-19 02:43 → NEDA 02-19 02:43 → N06B 02-19 04:18
PROVIDERS: ADMIT Hospitalist; ATTEND Hospitalist
DX: J18.1 Lobar pneumonia, unspecified organism (principal); J45.41 Moderate persistent asthma with (acute) exacerbation; E03.9 Hypothyroidism, unspecified; F41.9 Anxiety disorder, unspecified; Z79.899 Other long term (current) drug therapy; Z79.82 Long term (current) use of aspirin; R07.89 Other chest pain; E16.2 Hypoglycemia, unspecified; R05 Cough; R06.02 Shortness of breath; R06.2 Wheezing
CPT/HCPCS: 71020; 71275; 80048; 81001; 82550; 83605; 83880; 84484; 85007; 85025; 85027; 87040; 93005; 94640; 94664; 96361; 96365; 96372; 96375; 96376; 99285; G0378; J0696; J1885; J2930; J7030; J7512; Q9967